=== PATIENT | female | born 1930 | race Caucasian/White ===

== ENCOUNTER 2018-03-20 14:58 | Emergency (ER) | payer OTHER, MEDICARE ==
--- NOTE | 2018-03-20 16:04 | RADIOLOGY REPORT ---
EXAMINATION: XR FINGER, RIGHT CLINICAL INFORMATION: 5th finger deformity after a fall COMPARISON: None TECHNIQUE: Three views of the right 5th finger. FINDINGS: There is a fracture at the base of the 5th proximal phalanx with slight dorsal angulation. The fracture line most likely extends into the MCP joint. No additional fractures are evident. There are moderate to severe arthritic changes throughout the interphalangeal joints, most severe at the 5th PIP joint and 2nd DIP joint. IMPRESSION: Slightly angulated fracture at the base of the 5th proximal phalanx.
--- NOTE | 2018-03-20 16:06 | RADIOLOGY REPORT ---
EXAMINATION: XR KNEE, RIGHT CLINICAL INFORMATION: Right knee injury COMPARISON: None TECHNIQUE: Four views of the right knee. FINDINGS: Moderate to severe tricompartmental osteoarthritis with prominent osteophytes. There is a moderate joint effusion. No acute fractures demonstrated. IMPRESSION: Moderate to severe tricompartmental osteoarthritis with a joint effusion. No acute abnormality.
--- NOTE | 2018-03-20 16:22 | CT SCAN REPORT ---
EXAMINATION: CT HEAD AND CERVICAL SPINE. CLINICAL INFORMATION: Pain status post fall and head strike with laceration. COMPARISON: No relevant prior imaging. TECHNIQUE: [employer] images were obtained. CT acquisition of the head and cervical spine was performed without the intravenous administration contrast. Data was reformatted into multiplanar images at the acquisition workstation. DLP: 876.97 mGy-cm. FINDINGS: Head: There is no acute intracranial hemorrhage or abnormal extra-axial collection. No intracranial mass effect midline shift. Lateral and third ventricles are normal. No hydrocephalus. Llanos-white matter differentiation is grossly preserved and there is no evidence of acute territorial infarct. The calvarium and skull base are intact. Mastoid air cells and middle ear cavities are well aerated. Visualized paranasal sinuses are well-aerated. Globes and orbits are symmetric. Cervical spine: Alignment is normal. Vertebral body heights are preserved. No evidence of acute fracture. No abnormal prevertebral soft tissue swelling. There is loss of intervertebral disc height with associated sclerotic degenerative endplate changes and disc osteophyte spurring at levels of C5-C6 and C6-C7. There are varying degrees of neuroforaminal encroachment related to uncovertebral joint spurring and facet degenerative change that are most advanced at C5-C6. Soft tissues of the neck including the thyroid gland are normal. Visualized lung apices are clear. IMPRESSION: Head: No acute intracranial hemorrhage. Cervical spine: No acute cervical spine fracture.
--- NOTE | 2018-03-20 17:36 | ED HEAD/FACIAL INJ COMPLAINT ---
History of Present Illness General Chief Complaint: Facial or Head Injury Stated Complaint: LAC TO RT EYEBROW DUE TO FALL Source: patient, family Exam Limitations: no limitations Allergies Coded Allergies: No Known Allergies (03/20/18) Reconcile Medications Tylenol With Codeine (Tylenol With Codeine #3 Tablet) 300 MG-30 MG TABLET 1 TAB PO Q4-6 PRN PRN PAIN Triage Note: 87F SUSTAINED MECHANICAL TRIP AND FALL FORWARD ONTO SIDEWALK STRIKING HEAD AND PRESENTS WITH 1.5INCH LAC TO RIGHT FOREHEAD, BLEEDING CONTROLLED. UNSURE OF LAST TETANUS. PT DENIES LOC, PERRLA, -N/V -DIZZINESS. DENIES CERVICAL SPINOUS TENDERNESS OR HEADACHE. C/O RIGHT PINKY PAIN WITH NOTABLE DEFORMITY AND R KNEE PAIN UNABLE TO BEAR WEIGHT. ORDERS PLACED OK'ED BY MD Triage Nurses Notes Reviewed? yes Onset: Abrupt Severity: mild, moderate Severity Numbers: 6 Location: frontal Method of Injury: fall Loss of Consciousness: no loss of consciousness Associated Symptoms: headaches, knee pain and finger pain LMP (ages 10-50): unknown : No Patient currently breastfeeds: No HPI: 87 Y/O FEMALE history of hypertension, hyperlipidemia presents for evaluation after fall. Patient states she was walking when she tripped over a loose stone on the ground causing her to fall hit her right eyebrow right fifth digit and right knee on the ground. There is no loss of consciousness she was able to get up. No blood thinners. No changes in vision. She's been inability without difficulty. She reports the worst pain is in her right fifth digit. The pain is worse with movement or swelling. No numbness. No wrist pain no chest pain shortness of breath abdominal pain and neck pain or hip pain. (Yoan PATEL,Reggie) Vital Signs & Intake/Output Vital Signs & Intake/Output Vital Signs Date Time Temp Pulse Resp B/P B/P Pulse O2 O2 Flow FiO2 Mean Ox Delivery Rate 03/20 2020 98.1 66 16 124/69 99 Room Air 03/20 1802 98.0 64 16 128/71 97 Room Air 03/20 1743 Room Air 03/20 1511 98.0 62 18 129/62 97 Room Air (Gauri ROSE,Patrick Tyler) Past History Travel History Traveled to [place] past 21 day No Medical History Any Pertinent Medical History? see below for history Neurological: NONE EENT: NONE Cardiovascular: hypertension, hyperlipidemia Respiratory: NONE Gastrointestinal: NONE Hepatic: NONE Renal: NONE Musculoskeletal: NONE Psychiatric: NONE Endocrine: NONE Cancer(s): VULVA CANCER Surgical History Surgical History: non-contributory Psychosocial History What is your primary language Malian Tobacco Use: Quit >30 days ago ETOH Use: denies use Illicit Drug Use: denies illicit drug use Family History Hx Contributory? No (Reggie Lewis) Review of Systems Review of Systems Constitutional: Reports: no symptoms. EENTM: Reports: no symptoms. Respiratory: Reports: no symptoms. Cardiovascular: Reports: no symptoms. GI: Reports: no symptoms. Genitourinary: Reports: no symptoms. Musculoskeletal: Reports: see HPI, joint pain, joint swelling, muscle pain, muscle stiffness. Skin: Reports: see HPI (laceration). Neurological/Psychological: Reports: see HPI, headache. Hematologic/Endocrine: Reports: no symptoms. Immunologic/Allergic: Reports: no symptoms. All Other Systems: Reviewed and Negative (Reggie Lewis) Physical Exam Physical Exam General Appearance: well developed/nourished, no apparent distress, alert, awake Head: atraumatic, normal appearance Eyes: Bilateral: normal appearance, PERRL, EOMI. Ears, Nose, Throat: normal pharynx, normal ENT inspection, hearing grossly normal Neck: normal inspection, supple, full range of motion Respiratory: normal breath sounds, chest non-tender, no respiratory distress, lungs clear Cardiovascular: regular rate/rhythm, normal peripheral pulses Gastrointestinal: normal bowel sounds, soft, non-tender, no organomegaly Back: normal inspection, normal range of motion, no vertebral tenderness Extremities: there is swelling and bruising to the right fifth MCP joint and trace range of motion of the right fifth digit. Cap refill less than 2 seconds no wrist tenderness full range of motion remaining digits. There is a superficial abrasion and contusion to the anterior right knee. Full range of motion intact patient is able to walk and bear weight no other joint swelling or pain Psychiatric: awake, alert, oriented x 3 Cranial Nerves: normal hearing, normal speech, PERRL Coordination/Gait: normal finger to nose, normal gait Motor/Sensory: no motor/sensory deficits Skin: normal color, warm/dry, there is a 3 cm linear laceration located just above the right eyebrow. Subcutaneous tissue is visible is no bony point tenderness or crepitus. No subconjunctival hematoma extractive motion is intact without pain Lymphatic: no anterior cervical deana (Yoan PATEL,Reggie) Progress Differential Diagnosis: corneal abrasion, facial fracture, globe injury, ICH, orbit fracture, skull fracture Plan of Care: Patient seen and evaluated. She is here for mechanical fall. She didn't hit her head and has a laceration to the eyebrow she also has a right fifth digit fracture. She was placed in a long finger splint. Rest ice elevation compression follow-up with orthopedic. The laceration was cleaned with Betadine and sterile water 1% lidocaine without epi was used for local pain control. 5-0 nylon simple interrupted sutures used to approximate the wound patient tolerated well discussed wound care procedures. CT scans of the head and neck are negative x-ray of the right knee is negative right hand x-ray shows a nondisplaced right fifth digit fracture at the proximal segment. The fracture does enter the joint space. Tylenol with Codeine for pain. Follow-up with primary care doctor. Discussed return precautions patient agrees. Diagnostic Imaging: Viewed by Me: CT Scan. Discussed w/RAD: CT Scan. Radiology Impression: PATIENT: JOSE DAVID OLIVIER PRESENT AGE: 87 PATIENT ACCOUNT NO: [id number] : 31 LOCATION: [facility] ORDERING PHYSICIAN: Patrick Deras DO SERVICE DATE: 03/20/18 EXAM TYPE: CAT - CT CERV SPINE WO IV CONTRAST; CT HEAD WO IV CONTRAST EXAMINATION: CT HEAD AND CERVICAL SPINE. CLINICAL INFORMATION: Pain status post fall and head strike with laceration. COMPARISON: No relevant prior imaging. TECHNIQUE: [employer] images were obtained. CT acquisition of the head and cervical spine was performed without the intravenous administration contrast. Data was reformatted into multiplanar images at the acquisition workstation. DLP: 876.97 mGy-cm. FINDINGS: Head: There is no acute intracranial hemorrhage or abnormal extra-axial collection. No intracranial mass effect midline shift. Lateral and third ventricles are normal. No hydrocephalus. Llanos-white matter differentiation is grossly preserved and there is no evidence of acute territorial infarct. The calvarium and skull base are intact. Mastoid air cells and middle ear cavities are well aerated. Visualized paranasal sinuses are well-aerated. Globes and orbits are symmetric. Cervical spine: Alignment is normal. Vertebral body heights are preserved. No evidence of acute fracture. No abnormal prevertebral soft tissue swelling. There is loss of intervertebral disc height with associated sclerotic degenerative endplate changes and disc osteophyte spurring at levels of C5-C6 and C6-C7. There are varying degrees of neuroforaminal encroachment related to uncovertebral joint spurring and facet degenerative change that are most advanced at C5-C6. Soft tissues of the neck including the thyroid gland are normal. Visualized lung apices are clear. IMPRESSION: Head: No acute intracranial hemorrhage. Cervical spine: No acute cervical spine fracture. DICTATED BY: Chandler Beach MD DATE/TIME DICTATED:03/20/181610 MAINTENANCE REPAIRER:ALY DATE/TIME TRANSCRIBED:03/20/181610 CONFIDENTIAL, DO NOT COPY WITHOUT APPROPRIATE AUTHORIZATION., PATIENT: JOSE DAVID OLIVIER PRESENT AGE: 87 PATIENT ACCOUNT NO: [id number] : 31 LOCATION: [facility] ORDERING PHYSICIAN: Patrick Deras DO SERVICE DATE: 03/20/18 EXAM TYPE: RAD - XRY-KNEE, RIGHT EXAMINATION: XR KNEE, RIGHT CLINICAL INFORMATION: Right knee injury COMPARISON: None TECHNIQUE: Four views of the right knee. FINDINGS: Moderate to severe tricompartmental osteoarthritis with prominent osteophytes. There is a moderate joint effusion. No acute fractures demonstrated. IMPRESSION: Moderate to severe tricompartmental osteoarthritis with a joint effusion. No acute abnormality. DICTATED BY: Say Fuentes MD DATE/TIME DICTATED:03/20/181600 MAINTENANCE REPAIRER:ALY DATE/TIME TRANSCRIBED:03/20/181600 CONFIDENTIAL, DO NOT COPY WITHOUT APPROPRIATE AUTHORIZATION. <Electronically signed in Other Vendor System> SIGNED BY: Say Fuentes MD 03/20/181605, PATIENT: JOSE DAVID OLIVIER PRESENT AGE: 87 PATIENT ACCOUNT NO: [id number] : 31 LOCATION: [facility] ORDERING PHYSICIAN: Patrick Deras DO SERVICE DATE: 03/20/18 EXAM TYPE: RAD - XRY-FINGERS, RIGHT EXAMINATION: XR FINGER, RIGHT CLINICAL INFORMATION: 5th finger deformity after a fall COMPARISON: None TECHNIQUE: Three views of the right 5th finger. FINDINGS: There is a fracture at the base of the 5th proximal phalanx with slight dorsal angulation. The fracture line most likely extends into the MCP joint. No additional fractures are evident. There are moderate to severe arthritic changes throughout the interphalangeal joints, most severe at the 5th PIP joint and 2nd DIP joint. IMPRESSION: Slightly angulated fracture at the base of the 5th proximal phalanx. DICTATED BY: Say Fuentes MD DATE/TIME DICTATED:03/20/181558 MAINTENANCE REPAIRER: ALY DATE/TIME TRANSCRIBED:03/20/181558 CONFIDENTIAL, DO NOT COPY WITHOUT APPROPRIATE AUTHORIZATION. <Electronically signed in Other Vendor System> SIGNED BY: Say Fuentes MD 03/20/18 1912 (Reggie Lewis) Departure Departure Disposition: HOME OR SELF CARE Condition: Stable Clinical Impression Primary Impression: Fall Qualifiers: Encounter type: initial encounter Qualified Code: W19.XXXA - Unspecified fall, initial encounter Secondary Impressions: Laceration Referrals: Patient Has No Primary Care Dr (PCP/Family) Nilo Stock MD Additional Instructions: Rest, keep the area clean and dry. Apply bacitracin and change the dressing once daily. After DAY 3 OR 4 LEAVE the area open to air dry. The stitches need to come out IN about 5 days. Wear the splint at all times. Apply ice use Tylenol as needed for pain. Tylenol with codeine for severe pain only this may cause drowsiness and constipation. Take with a stool softener. Follow-up with provided orthopedic surgeon as soon as possible. Monitor symptoms return with any concerns. Departure Forms: Customer Survey General Discharge Information Prescriptions: Current Visit Scripts Tylenol With Codeine (Tylenol With Codeine #3 Tablet) 1 TAB PO Q4-6 PRN PRN PAIN #10 TAB (Reggie Lewis) PA/TRAY SETTER Co-Sign Statement Statement: ED Attending supervision documentation- [x] I saw and evaluated the patient. I have also reviewed all the pertinent lab results and diagnostic results. I agree with the findings and the plan of care as documented in the PA's/TRAY SETTER's documentation. Patient presents for evaluation of injury sustained status post fall. Patient's physical examination reveals a laceration over the right brow and tenderness of the right little finger. [] I have reviewed the ED Record and agree with the PA's/TRAY SETTER's documentation. [] Additions or exceptions (if any) to the PAs/TRAY SETTER's note and plan are summarized below: [] (Gauri ROSE,Patrick Tyler) Procedures Splinting Location: RT 5TH DIGIT Manual Alignment Performed: No Splint: FINGER SPLINT Splint Applied By: splint applied by me Pre-Proc Neuro Vasc Exam: normal Post-Proc Neuro Vasc Exam: normal Laceration/Wound Repair Laceration/Wound Repair: Wound Location: face (RT EYE BROW) Wound's Depth, Shape: linear, subcutaneous Wound Length (cm): 3 Wound Explored: clean, no foreign body removed, irrigated extensively Irrigated w/ Saline (ccs): 300 Betadine Prep? Yes Anesthesia: 1% lidocaine Volume Anesthetic (ccs): 5 Wound Debrided: minimal Wound Repaired With: sutures Suture Size/Type: 5:0, nylon Number of Sutures: 5 Layer Closure? No Sterile Dressing Applied: Yes Splint Applied? No Date of Last Tetanus: 03/20/18 Tetanus Status: up to date (Reggie Lewis)
[2018-03-20] MEDS ORDERED: TYLENOL WITH C1 EACH PO (19:57)
[2018-03-20 20:20] VITALS: BP 124/69
== END 2018-03-20 20:21 ==
LOC: ERH 14:58
DX: S62.616A Displaced fracture of proximal phalanx of right little finger, initial encounter for closed fracture (principal); S01.111A Laceration without foreign body of right eyelid and periocular area, initial encounter; W18.09XA Striking against other object with subsequent fall, initial encounter; Y92.9 Unspecified place or not applicable; Y93.9 Activity, unspecified
CPT/HCPCS: 73140-RT; 73560-RT; 90714; J2001

== ENCOUNTER 2018-03-27 14:31 | Emergency (ER) | payer OTHER, MEDICARE ==
[~2018-03-27] VITALS: Ht 144.8 cm; Wt 63.5 kg
[~2018-03-27 14:31] MED LIST: TYLENOL WITH C1 EACH PO
[2018-03-27 14:35] VITALS: BP 146/73
--- NOTE | 2018-03-27 14:35 | ED ANIMAL BITE/WOUND CHECK ---
See Addendum History of Present Illness General Chief Complaint: Suture Removal/Wound Recheck Stated Complaint: SUTURE REMOVAL Source: patient Exam Limitations: no limitations Vital Signs & Intake/Output Vital Signs & Intake/Output Vital Signs Date Time Temp Pulse Resp B/P B/P Pulse O2 O2 Flow FiO2 Mean Ox Delivery Rate 03/27 1435 98.1 67 18 146/73 99 Room Air Allergies Coded Allergies: No Known Allergies (03/20/18) Reconcile Medications Tylenol With Codeine (Tylenol With Codeine #3 Tablet) 300 MG-30 MG TABLET 1 TAB PO Q4-6 PRN PRN PAIN Triage Nurses Notes Reviewed? yes HPI: Pt presented for right eyebrow suture removal today. Denies any pain or drainage. (Galileo Rodarte) Past History Travel History Traveled to [place] past 21 day No Medical History Any Pertinent Medical History? none Neurological: NONE EENT: NONE Cardiovascular: hypertension, hyperlipidemia Respiratory: NONE Gastrointestinal: NONE Hepatic: NONE Renal: NONE Musculoskeletal: NONE Psychiatric: NONE Endocrine: NONE Cancer(s): VULVA CANCER Tetanus Vaccine: 03/20/18 Surgical History Surgical History: non-contributory Psychosocial History What is your primary language Chinese Tobacco Use: Quit >30 days ago Family History Hx Contributory? No (Galileo Rodarte) Review of Systems Review of Systems Constitutional: Denies: no symptoms, see HPI. (Glaileo Rodarte) Physical Exam Physical Exam General Appearance: well developed/nourished, no apparent distress (Galileo Rodarte) Progress Differential Diagnosis: right eyebrow laceration Plan of Care: 87 year old female presents with R eyebrow lac s/p sutures that are now ready for removal. Sutures removed by me, tolerated the procedure well, no erythema, no fluctuance or drainage. No signs of obvious infection or pain. Pt may follow up with PCP as needed or return for any worsening symptoms. (Galileo Rodarte) Departure Departure Disposition: HOME OR SELF CARE Condition: Stable Clinical Impression Primary Impression: Visit for suture removal Referrals: Patient Has No Primary Care Dr (PCP/Family) Departure Forms: Customer Survey General Discharge Information (Galileo Rodarte) PA/PSYCH SALES SPECIALIST Co-Sign Statement Statement: ED Attending supervision documentation- [X] I saw and evaluated the patient. I have also reviewed all the pertinent lab results and diagnostic results. I agree with the findings and the plan of care as documented in the PA's/PSYCH SALES SPECIALIST's documentation. [X] I have reviewed the ED Record and agree with the PA's/PSYCH SALES SPECIALIST's documentation. [] Additions or exceptions (if any) to the PAs/PSYCH SALES SPECIALIST's note and plan are summarized below: [] (Mayuri ROSE,Lonnie Reid)
== END 2018-03-27 14:50 ==
LOC: ERH 14:31
DX: Z48.02 Encounter for removal of sutures (principal)